=== PATIENT | female | born 1985 | race Caucasian/White ===

== ENCOUNTER → 2016-10-01 | Outpatient (CLI) | payer BC ==
--- NOTE | 2016-10-01 19:02 | US ---
[facility] Providers, Thank you for sending your patient, Deepa Sibley, to us for an US and consultation to assess a natomy. As you know, the patient is a 30 y.o. G1, P0 at 19 weeks and 5 days with an EDC of 02/20/17 ba sed on LMP and 10 week US. Her has been uncomplicated to date. Genetic Screening: NIPT reassuring The patient denies any uterine contractions, vaginal bleeding, or loss of fluid. Today, she is withou t complaints. US FINDINGS: Number of fetuses: 1 Placental location: Anterior, No previa Placental Cord Insertion: Central presentation: Cephalic Cervix: 3.6 cm, transvaginally MVP: 2.9 cm The adnexa were evaluated. No pathology was seen. Right ovary: Suboptimal Left ovary: Suboptimal heart rate: 150 bpm Measurements: Biparietal diameter: 44 mm, 19 weeks 2 days Head circumference: 165 mm, 19 weeks 2 days Abdominal circumference: 142 mm, 19 weeks 5 days Femur length: 30 mm, 19 weeks 2 days Humerus length: 29 mm, 19 weeks 5 days Transcerebellar diameter: 20 mm, 19 weeks 0 days Average ultrasound age: 19 weeks 3 days Estimated weight: 289 g weight percentile: 28% ANATOMY Supratentorial brain: Normal Cerebral lateral ventricle: 5 mm Posterior fossa: Normal Cisterna magna: 5 mm Nuchal fold: 2.7 mm Lip: Normal Profile: Normal Alveolar Ridge: Appears intact Spine: -- Cervical: Suboptimal -- Thoracic: Suboptimal -- Lumbar: Normal -- Sacral: Normal Heart: -- 4 Chamber: Normal -- Intraventricular septum: Appears intact by Color and Spectral US -- Right Outflow Tract: Normal -- Left Outflow Tract: Normal -- 3 Vessel View: Normal Diaphragm: Appears intact Stomach: Normal Abdominal Umbilical Cord Insertion: Normal Right kidney: Normal Left kidney: Normal Bladder: Normal Number of cord vessels: 3 Upper extremities: -- Right Arm: Normal -- Right Hand: Normal -- Left Arm: Normal -- Left Hand: Normal Lower extremities: -- Right Leg: Normal -- Right Foot: Normal, no club foot -- Left Leg: Normal -- Left Foot: Normal, no club foot IMPRESSION: 1. Anatomy: The fetus measures appropriate for gestational age, measuring a normal weight and percen tile. Visualization of the fetus today reveals no overt structural anomalies. The cervical and thorac ic spine was not well seen. However, the sacral spine and posterior fossa were well seen which exclud es >95% of ONTD. There is evidence of normal amniotic fluid, and movement was seen during the e xamination. - If MS-AFP level is reassuring, no further US assessment of the spine is warranted. 2. Genetic Screening: This patient has had reassuring NIPT results this . Today, no markers of aneuploidy were seen. While her screening and US results are reassuring, we reviewed that fe nicci aneuploidy can only be definitively excluded with diagnostic testing via amniocentesis. After thi s discussion, the patient does not wish to proceed with invasive testing at this time. Thank you again for sending this patient to see us today. Please feel free to contact me with any questions at . Daiana Tsang MD Maternal- Medicine
--- NOTE | 2016-10-02 17:50 | US ---
Ultrasound Obstetric second trimester, greater than 14 weeks Indication: The estimated gestational age by LMP is 19 weeks and 5 days yielding an EDC of February 20, 2017. Comparison: None. Findings: Number: 1 Presentation: Vertex Placental Location: Anterior without previa Cervix: 3.6 cm MVP: 2.9 cm Heart Rate: 150 bpm. Right ovary measures 1.4 x 1.2 x 0.8 cm. Left ovary measures 2.4 x 2 x 1.4 cm. Biometry: Biparietal Diameter: 43.86 mm 19 weeks, 2 days Head Circumference: 165.28 mm 19 weeks, 2 days Abdominal Circumference: 142.44 mm 19 weeks, 5 days Femur Length: 29.75 mm 19 weeks, 2 days Humerus Length: 29.43 mm 19 weeks, 5 days Transcerebellar Diameter: 19.64 mm 19 weeks, 0 days HC/AC: 1.16 (1.09 - 1.26) FL/BPD: 68% FL/AC: 21% Average Ultrasound Age: 19 weeks, 3 days EDC Based on Today's Average Ultrasound Age: February 22, 2017 Estimated weight is 289 gms +/- 42 gms. The estimated weight is at the 28th % based on previous dating. ANATOMY SURVEY: Supratentorial Brain: Normal Posterior Fossa: Normal Spine: Suboptimal Nuchal fold: Normal Nose and Lips: Normal Facial Profile: Normal Heart: Four chamber heart. 150 bpm. Intact intraventricular septum. Cardiac Outflow Tracts: Normal Stomach: Normal Umbilical Cord Insertion: Normal Kidneys: Normal, no pyelectasis Bladder: Normal Number of Cord Vessels: Three Upper Extremities: Visualized Lower Extremities: Visualized. Impression: 1. Living lawson in vertex presentation. 2. Size concordant with dates. 3. No overt abnormalities although limited spine evaluation. 4.Please see Dr. Daiana Tsang's consult and recommendations.
== END ==
LOC: FIMAGING 07:48
PROVIDERS: ATTEND Advanced Practice Midwife
DX: Z36 Encounter for antenatal screening of mother (principal); Z3A.19 19 weeks gestation of pregnancy

== ENCOUNTER → 2017-02-27 | Outpatient (CLI) | payer BC | LOC: FIMAGING 09:50 | PROVIDERS: ATTEND Advanced Practice Midwife | DX: O41.03X0 Oligohydramnios, third trimester, not applicable or unspecified (principal); Z3A.41 41 weeks gestation of pregnancy ==